=== PATIENT | female | born 1945 | race African-American/Black ===

== ENCOUNTER → 2020-07-11 | Outpatient (CLI) | payer MEDICARE ==
[~2020-07-11] MED LIST: AMIT25TA PO; AMLO-186 PO; HYDR200T5 PO; PENT100C PO; [UNRECOGNIZED DRUG - CODE] PO
== END ==
LOC: LAB 09:10
PROVIDERS: ATTEND Internal Medicine Gastroenterology
DX: Z01.812 Encounter for preprocedural laboratory examination (principal); K62.5 Hemorrhage of anus and rectum; Z20.828 Contact with and (suspected) exposure to other viral communicable diseases
CPT/HCPCS: U0003

== ENCOUNTER → 2020-07-13 | Day surgery (SDC) | payer MEDICARE ==
[~2020-07-13] MED LIST changes: +IV RINGERS,LACTATED 1000ML 1,000 ML IV SCH; +LIDOCAINE 2% PF 5 ML VIAL. ONE; +PROPOFOL 10 MG/ML (20ML) VIAL. IV ONE
[2020-07-13 08:37] VITALS: BP 157/83
--- NOTE | 2020-07-15 14:11 | PATHOLOGY ---
[facility] Accession Number: [id number] . 01 Material submitted: . rectosigmoid junction - RECTOSIGMOID BIOPSY R/O ULCERATIVE PROCTITIS . 01 Clinical history: . BLOOD IN STOOLS RECTAL BLEED . 02 Diagnosis: Colorectal biopsies, rectosigmoid colon: - Focal acute colitis. See comment. (JPM:repairer cylinder heads; 07/15/2020) [facility] 07/15/2020 1227 Local . 02 Comment: Sections of the rectosigmoid colon biopsy reveal multiple segments of colorectal mucosa. Several of the biopsy segments appear relatively normal and show mild edema. There are also several segments which show acute inflammation and focal ulceration associated with dropout of colonic glands. The findings are suggestive of ischemic colitis. The differential diagnosis includes an infectious colitis. (JPM:repairer cylinder heads; 07/15/2020) . 02 Electronically signed: . Ayo Yepez MD, Pathologist NPI- [id number] . 01 Gross description: . The specimen is received in formalin, labeled "Batool Brown, rectosigmoid biopsy, R/O ulcerative proctitis". Received are multiple segments of pale dewitt soft tissue ranging in size from 0.2 to 0.3 cm in maximum dimensions. The specimen is submitted entirely in cassette A1. (CAA; 07/14/2020) [facility] 07/14/2020 1944 Local . 02 Pathologist provided ICD-10: K52.9 . 02 CPT . 093665 Specimen Comment: A courtesy copy of this report has been sent to [phone], [phone] Specimen Comment: [id number] Specimen Comment: Report sent to / DR DE SANTIAGO Performed at: [address], [place], [place] [id number] MD Juan A Yoo MD Phone: [phone] Performed at: [address] [id number] MD Ayo Yepez MD Phone: [phone]
== END | disposition home or self-care (01) ==
LOC: ENDOS 06:32
PROVIDERS: ATTEND Internal Medicine Gastroenterology
DX: K92.1 Melena (principal); K63.3 Ulcer of intestine; K64.0 First degree hemorrhoids; K63.89 Other specified diseases of intestine; I10 Essential (primary) hypertension; Z88.0 Allergy status to penicillin; Z88.2 Allergy status to sulfonamides; Z79.899 Other long term (current) drug therapy; Z98.890 Other specified postprocedural states
CPT/HCPCS: 45380; 88305; J2704; 45384